=== PATIENT | male | born 1970 | race Caucasian/White ===

== ENCOUNTER 2022-05-09 14:45 | Outpatient (CLI) | payer OTHER, SELFPAY ==
[2022-05-09 16:27] LABS: Thyroid Stim Hormone (TSH) 1.13 uIU/mL (0.358-3.74)
== END 2022-05-09 23:59 | disposition home or self-care (01) ==
LOC: LAB 14:47
PROVIDERS: PCP Preventive Medicine Occupational Medicine; Visit Provider Internal Medicine Cardiovascular Disease
DX: E78.2 Mixed hyperlipidemia (principal); I10 Essential (primary) hypertension; G47.33 Obstructive sleep apnea (adult) (pediatric)
CPT/HCPCS: 36415; 84443

== ENCOUNTER → 2022-05-27 | Outpatient (CLI) | payer OTHER, SELFPAY ==
--- NOTE | 2022-05-27 07:46 | RDU_ITS ---
Reason For Study: Hypertension Right Renal Artery Left Renal Artery Right renal artery ostium Left renal artery ostium 122.6/39.3 137.4/49.6 RSV/EDV. PSV/EDV. Right renal artery proximal Left renal artery proximal PSV/EDV 159.3/51.8 PSV/EDV. 133.6/41.5 . Right renal artery mid 120.4/36.6 Left renal artery mid 133.6/39.3 PSV/EDV. PSV/EDV . Right renal artery distal 98.7/35.1 Left renal artery distal 61.9/20.2 PSV/EDV. PSV/EDV. Right RAR 2.21. Left RAR 1.86. Right Renal Parenchyma Left Renal Parenchyma Upper Pole Medula 48.2/19.2 Left upper pole medulla 31.7/14.1 PSV/EDV. PSV/EDV . Right upper pole medulla EDR 0.40 . Left upper pole medulla EDR 0.40 . Right upper pole medulla R.I. Left upper pole medulla R.I. 0.55 . 0.59 . UP Cortex 28.9/13.2 PSV/EDV. Upper [place] Cortx 27.6/11.6 PSV/EDV. Left upper pole cortex EDR 0.50 . Right upper pole cortex EDR 0.40 . Left upper pole cortex R.I. 0.54 . Right upper pole cortex R.I. 0.58 . Left lower Pole medulla 38.3/14.1 Right lower Pole medulla 41.6/16.4 PSV/EDV . PSV/EDV . Left lower pole medulla EDR 0.40 . Right lower pole medulla EDR 0.40 . Left lower pole medulla R.I. 0.63 . Right lower pole medulla R.I. Lower Pole Cortx 26.2/13.1 PSV/EDV. 0.61 . Left lower pole cortex EDR 0.50 . Lower Pole Cortex 22.9/10.9 Left lower pole cortex R.I. 0.50 . PSV/EDV. Left Renal Hilar Right lower pole cortex EDR 0.50 . LT Hilar avg 101.8/38.3 PSV/EDV . Right lower pole cortex R.I. 0.53 . Left hilar acceleration time 60 Right Renal Hilar m/sec. Right Hilar avg 109.7/31.2 PSV/EDV. Left Renal Dimensions Right hilar acceleration time 50 Left kidney size 11.99 cm . m/sec. Left cortical dimension 1.73 cm . Right Renal Dimensions Right kidney size 12.90 cm . Right cortical dimension 1.80 cm . Aorta Proximal abdominal aorta 1.85 x 1.90 cm . Proximal abdominal aorta peak systolic velocity is 61.0 cm/sec . Distal abdominal aorta 1.41 x 1.43 cm . Distal abdominal aorta peak systolic velocity is 72.0 cm/sec . VL/Renal Artery Duplex Ultrasound Interpretation Summary Right renal artery patent with normal velocities and no stenosis Left renal artery patent with normal velocities and no stenosis Right renal vein patent Left renal vein patent Right kidney normal in size Left kidney normal in size Ordering Physician: Nikhil Woody Referring Physician: MD Sawyer Fitch Performed By: Gabriel Agarwal RVT
== END | disposition home or self-care (01) ==
PROVIDERS: PCP Preventive Medicine Occupational Medicine; Visit Provider Internal Medicine Cardiovascular Disease
DX: I10 Essential (primary) hypertension (principal); E78.2 Mixed hyperlipidemia; G47.33 Obstructive sleep apnea (adult) (pediatric)
CPT/HCPCS: 93975

== ENCOUNTER → 2022-05-29 | Outpatient (CLI) | payer OTHER, SELFPAY | END | disposition home or self-care (01) | PROVIDERS: PCP Preventive Medicine Occupational Medicine; Visit Provider Nurse Practitioner Acute Care | DX: G47.33 Obstructive sleep apnea (adult) (pediatric) (principal) | CPT/HCPCS: 95806 ==

== ENCOUNTER → 2023-05-15 | Outpatient (CLI) | payer OTHER, SELFPAY | END | disposition home or self-care (01) | LOC: LABSPEC 15:14 | PROVIDERS: PCP Preventive Medicine Occupational Medicine; Referring Provider Otolaryngology; Visit Provider Otolaryngology | DX: J32.8 Other chronic sinusitis (principal) | CPT/HCPCS: 87070; 87077; 87186; 87205 ==

== ENCOUNTER → 2023-05-26 | Outpatient (CLI) | payer OTHER, SELFPAY ==
--- NOTE | 2023-05-26 08:04 | CT_ITS ---
STUDY: CT MAXILLOFACIAL SINUSES REASON FOR EXAM: Male, 52 years old. CHRONIC SINUSITIS RADIATION DOSAGE (If Supplied By Facility): CTDIvol = ( 28.14 ) mGy, DLP = ( 735.64 ) mGycm TECHNIQUE: The patient was scanned in a multi detector CT scanner. High resolution axial imaging was performed without the administration of intravenous contrast material. Sagittal and coronal images were reconstructed. Individualized dose optimization techniques were used for this CT. COMPARISON: None. FINDINGS: FRONTAL SINUSES: Normal aeration, without mucosal inflammatory disease. ETHMOIDAL SINUSES: Partial opacification of the ethmoid sinuses bilaterally. MAXILLARY SINUSES: There is opacification of the left maxillary sinus. There is extension of the soft tissues through the ostiomeatal complex into the left nasal fossa. SPHENOIDAL SINUSES: Normal aeration, without mucosal inflammatory disease. Normal bilateral middle turbinates. Normal bilateral inferior turbinates. Normal midline nasal septum. Partial obliteration of the left nasal airway due to soft tissue prominence arising from the left maxillary sinus. The visualized osseous structures are normal. The visualized bilateral orbital contents are normal. CT/Sinus/Facial Bone IMPRESSION: Opacification of the left maxillary sinus with extension into the adjacent left nasal fossa. Partial opacification of the ethmoid sinuses bilaterally. Electronically Signed: Hemant Patel MD at 11:03 EST ,
== END | disposition home or self-care (01) ==
PROVIDERS: PCP Preventive Medicine Occupational Medicine; Referring Provider Otolaryngology; Visit Provider Otolaryngology
DX: J32.8 Other chronic sinusitis (principal); J33.0 Polyp of nasal cavity
CPT/HCPCS: 70486

== ENCOUNTER → 2023-06-18 | Outpatient (CLI) | payer OTHER, SELFPAY ==
--- NOTE | 2023-06-18 13:44 | EKG12_ITS ---
Test Reason : PREOP Blood Pressure : / mmHG Vent. Rate : 056 BPM Atrial Rate : 056 BPM P-R Int : 168 ms QRS Dur : 100 ms QT Int : 448 ms P-R-T Axes : 009 -13 -10 degrees QTc Int : 432 ms Sinus bradycardia Otherwise normal ECG Confirmed by BINU STEWART, PATRIC ([id number]), school photograph editor JOSE HALLMAN ([id number]) on 06/19/2023 11:37:18 AM Referred By: Stan Durham Confirmed By:PATRIC SCHMID MD
--- OUTSIDE RECORDS SUMMARY | 2023-06-18 14:08 | XMS RPT_ITS | CCD ---
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 Name Role Phone ALBA CRISTOBAL DO Primary Care Physician ([id number]) Medications Current Medications Medication Drug Class(es) Dates Sig (Normalized) Sig (Original) allopurinol 100 mg oral tablet (1 source) Xanthine Oxidase Inhibitor Start: 09-12-2021 allopurinol 100 mg oral tablet Dose : 100 mg = 1 tab(s), Oral, qDay, # 30 tab(s), 3 Refill(s), Pharmacy: [facility] [facility] 167.6, cm, 09/11/21 15:30:00 EDT, Height Start Date: 09/12/21 Status: Ordered carvedilol 25 mg oral tablet (1 source) alpha-Adrenergic Janna, beta-Adrenergic Janna Start: 09-11-2021 carvedilol 25 mg oral tablet Dose : 37.5 mg = 1.5 tab(s), Oral, BIDM, # 90 tab(s), 11 Refill(s), Pharmacy: [facility] 167.6, cm, 09/11/21 15:30:00 EDT, Height, kg, 09/11/21 15:30:00 EDT, Dosing Weight Start Date: 09/11/21 Status: Ordered 24 hr dilTIAZem hydrochloride 240 mg extended release oral tablet (1 source) Calcium Channel Janna Start: 06-25-2021 take 1 tablet by mouth once daily dilTIAZem 240 mg/24 hours oral tablet, extended release See Instructions, take 1 tablet by mouth once daily, # 90 tab(s), 3 Refill(s), [facility]acy: [facility] [address] 167.6, cm, 02/01/21 18:02:00 EDT, Height, kg, 02/01/21 18:02:00 EDT, Dosing Weight Start Date: 06/25/21 Status: Ordered hydroCHLOROthiazide 12.5 mg / valsartan 160 mg oral tablet (1 source) Thiazide Diuretic, Angiotensin 2 Receptor Janna Start: 07-20-2021 take 1 tablet by mouth twice daily hydrochlorothiaz maribeth-valsartan 12.5 mg-160 mg oral tablet See Instructions, take 1 tablet by mouth twice a day, # 60 tab(s), 5 Refill(s), Pharmacy: [facility] [address] 167.6, cm, 02/01/21 18:02:00 EDT, Height, kg, 02/01/21 18:02:00 EDT, Dosing Weight Start Date: 07/20/21 Status: Ordered Problems Problem Classification Problem Date Documented Da te Episodic/Chronic Disorders of lipid metabolism (1 source) Mixed hyperlipidemia 08-13-2019 Chronic Essential hypertension (2 sources) Essential hypertension; Translations: [Hypertensive disorder] 08-17-2019 Chronic Heart valve disorders (1 source) Heart murmur 08-17-2019 Episodic Malaise and fatigue (1 source) Fatigue 08-17-2019 Episodic Nonspecific chest pain (1 source) Chest pain 08-13-2019 Episodic Residual codes; unclassified (1 source) Obstructive sleep apnea syndrome 08-17-2019 Chronic Results Test Name Value Interpretation Reference Range Facil ity Encounters Encounter Date Encounter Type Care Provider Facility Start: 09-12-2021 End: 09-12-2021 Patient encounter procedure JUNA A CORONEL [facility] Procedures Date Procedure Procedure Detail Performing Clinician Start: 02-23-2019 Electrocardiographic monitoring JUAN A CORONEL Immunizations Immunization Date Immunization Notes Care Provider Safia robles 02-01-2021 tetanus toxoid, redu mau diphtheria toxoid, and acellular pertussis vaccine, adsorbed JUAN A KAREN MCGUIRE-GENERATOR SWITCHBOARD OPERATOR [facility] 12-22-2018 tetanus toxoid, redu mau diphtheria toxoid, and acellular pertussis vaccine, adsorbed JUAN A FISH THEATER SET PRODUCTION DESIGNER-GENERATOR SWITCHBOARD OPERATOR [facility] Social History Date Type Detail Facility Start: 12-22-2018 Tobacco smoking status Never s moked tobacco (finding) [facility] Sex Assigned At Sex [facility] Evaluation + Plan note Note Date & Type Note Facility Evaluation + Plan note Future Appointments Appointment Date:09/25/2021 03:30:00 PM Scheduled Provider: Location:[facility] Appointment Type:CV Nurse BP Check [facility] Hospital course Narrative Note Date & Type Note Facility Hospital course Narrative No data available for this section [facility] Hospital Discharge instructions Note Date & Type Note Facility Hospital Discharge instructions No data available for this section [facility] Progress note Note Date & Type Note Facility Progress note No data available for this section [facility] Summary Purpose Family History No Family History Records Found Advance Directives No Advanced Directives Records Found Additional Source Comments Care Team (unrecognized sect ion and content) Personnel Name: ALBA CRISTOBAL DO Address: [address] [place] [address] (unrecognized sect ion and content) No Status Records Found INFORMATION SOURCE (unrecogn ized section and content) FOR RECORDS PERTAINING TO PATIENTS WHO ARE OR HAVE BEEN ENROLLED IN A CHEMICAL DEPENDENCY/SUBSTANCEABUSE PROGRAM, SOME INFORMATION MAY BE OMITTED. This clinical summary was aggregated from multiple sources. Caution should be exercised in using it in the provision of clinical care. This summary normalizes information from multiple sources, and as a consequence, information in this document may materially change the coding, format and clinical context of patient data. In addition, data may be omitted in some cases. CLINICAL DECISIONS SHOULD BE BASED ON THE PRIMARY CLINICAL RECORDS. [facility]. provides no warranty or guarantee of the accuracy or completeness of information in this document.
[2023-06-18 15:33] LABS: Hematocrit 42.7 % (40-54); Hemoglobin 15.4 g/dL (13.0-16.5); Mean Corp Hgb Conc 36.1 g/dL (32-36); Mean Corpuscular Hgb 31.8 pg (27.0-32.0); Mean Corpuscular Volume 88.2 fL (80-94); Platelet Count 287 K/mm3 (150-450); RBC Distribution Width CV 13.4 % (11.6-14.6); RBC Distribution Width SD 43.1 fl (35.1-43.9); Red Blood Count 4.84 M/mm3 (4.6-6.2); White Blood Count 10.8 K/mm3 (4.4-11.0)
[2023-06-18 16:30] LABS: Anion Gap 7 (5-15); BUN 18 mg/dL (7-18); BUN/Creat Ratio 19.8 RATIO (10-20); Chloride 102 mmol/L (98-107); Creatinine, Serum 0.91 mg/dL (0.70-1.30); EST Glomerular Filtration Rate 92 mL/min (>60); Est Glom Filt Rate - Afr Amer 112 mL/min (>60); Glucose 96 mg/dL (74-106); Potassium 3.2 mmol/L (3.5-5.1); Sodium Level 139 mmol/L (136-145)
[2023-06-19 17:44] LABS: Cholesterol 179 mg/dL (200); High Density Lipoprotein 70 mg/dL; PSA,Total - Annual Screen 4.53 ng/mL (0.00-4.00); Triglycerides 213 mg/dL; Very Low Density Lipoprotein 43 mg/dL (5-40)
== END | disposition home or self-care (01) ==
PROVIDERS: Nurse Practitioner Family; PCP Preventive Medicine Occupational Medicine; Referring Provider Otolaryngology; Visit Provider Otolaryngology
DX: Z01.812 Encounter for preprocedural laboratory examination (principal); Z01.810 Encounter for preprocedural cardiovascular examination; Z12.5 Encounter for screening for malignant neoplasm of prostate; Z13.220 Encounter for screening for lipoid disorders
CPT/HCPCS: 36415; 80048; 80061; 84153; 85027; 93005; G0103

== ENCOUNTER → 2024-08-31 | Outpatient (CLI) | payer OTHER, SELFPAY ==
[2024-09-01 13:08] LABS: PSA, Free 0.51 ng/mL
== END | disposition home or self-care (01) ==
LOC: LAB 11:03
PROVIDERS: PCP Preventive Medicine Occupational Medicine; Referring Provider Urology; Visit Provider Urology
DX: R97.20 Elevated prostate specific antigen [PSA] (principal)
CPT/HCPCS: 36415; 84153; 84154

== ENCOUNTER → 2024-09-21 | Outpatient (CLI) | payer OTHER, SELFPAY ==
--- NOTE | 2024-09-21 12:28 | MRI_ITS ---
PROCEDURE: PELVIS W/WO CONTRAST, 09/21/2024 REASON FOR EXAM: ELEVATED PSA TECHNIQUE: Multisequence multiplanar MRI pelvis was performed with and without IV contrast. CONTRAST: 20 mL Clariscan COMPARISON: None FINDINGS: Variable overall mild motion limitation, mild/moderately degrading the axial and sagittal small [id number] T2 sequences which are notably gonzalez sequences. Sagittal postcontrast sequences also mild/moderately motion degraded. Dynamic postcontrast imaging limited by suboptimal signal to noise ratio. Prostate size: 5.4 x 4.1 x 4.9 cm, estimated volume 56 mL. Transition zone: PI-RADS 2 findings. Additional lesions as below: *Lesion 1: Junction of the LEFT anterior peripheral zone and the underlying LEFT anterior transition zone at the level of the midgland to apex, 1.3 cm (series 13, image 22). *T2 score: 3. *DWI score: 4. *DCE: N/A. *Overall PI-RADS: PI-RADS 3 utilizing transition zone criteria. *Extracapsular extension:No definite extracapsular extension allowing for limitations, however, there is capsular abutment greater than 1 cm which increases the risk of occult early/microscopic extracapsular extension. Peripheral Zone: Background changes of likely prostatitis (PI-RADS 2). Additional lesions as below: *Lesion 2: Bilateral posteromedial peripheral zones at the midgland to apex, 3.2 cm (series 13, image 23). *T2 score: 3. *DWI score: 3. *DCE: N/A. *Overall PI-RADS: Negative although limited due to suboptimal signal to noise ratio as above. *Extracapsular extension:No definite extracapsular extension allowing for limitations, however, there is capsular abutment greater than 1 cm which increases the risk of occult early/microscopic extracapsular extension. Note that this includes the region of the bilateral neurovascular bundles and anterior rectum, without gross involvement. Neurovascular bundles: Unremarkable. Seminal vesicles: Unremarkable. Bladder: Unremarkable. Lymph nodes: Unremarkable. Bones: No destructive or frankly suspicious bony lesions identified. Other: Partially imaged at least small LEFT and trace RIGHT hydroceles. Suspect vasectomy. MRI/Pelvis W/WO Contrast IMPRESSION: 1. Slightly motion limited exam as above. 2. 1.3 cm PI-RADS 3 lesion at the junction of the LEFT anterior peripheral and underlying transition zones at the level of the midgland to apex, applying transition zone criteria (lesion 1). 3. 3.2 cm PI-RADS 3 lesion in the bilateral posteromedial peripheral zones at t he midgland to apex (lesion 2). 4. No definite extracapsular extension allowing for limitations, however, there is capsular abutment greater than 1 cm by both lesions which increases the risk of occult early/microscopic extracapsular exte nsion. Note that this includes the region of the bilateral neurovascular bundles and anterior rectum, without gross involvement. 5. No overt pelvic lymphadenopathy. 6. Additional description as above. Reading Location: [facility]
== END | disposition home or self-care (01) ==
LOC: MRI 12:25
PROVIDERS: PCP Preventive Medicine Occupational Medicine; Referring Provider Urology; Visit Provider Urology
DX: R97.20 Elevated prostate specific antigen [PSA] (principal)
CPT/HCPCS: 72197; A9575

== ENCOUNTER → 2024-10-12 | Outpatient (CLI) | payer OTHER, SELFPAY ==
--- NOTE | 2024-10-12 13:00 | PROSBIL_PTH ---
PATIENT: PONCHO KEYES [facility] U[id number] AGE/SX: 54/M ROOM: RE10/12/[address]: Dr. Lalo Álvarez MD : [id number] BED: DIS: 10/12/2024 SPEC #: [id number] RECD: 10/12/24 15:33 STATUS: CARTER RERadha #: [id number] ABNER: 10/12/24 13:[address]: Lalo Álvarez DEPT: SURGICAL PATHOLOGY RECD BY: Omar Deluca ENTERED: 10/13/24 08:58 SP TYPE: PROST BX ART DR: Dr. Sawyer Fitch DO Tissues: A - PROSTATE RIGHT B - PROSTATE RIGHT C - PROSTATE RIGHT D - PROSTATE LEFT E - PROSTATE LEFT F - PROSTATE LEFT Procedures: PROSTATE BX HEADER OPERATION: Prostate biopsy PRE-OP DIAGNOSIS: Elevated PSA TISSUE SUBMITTED: A - Right apex, B - Right mid, C - Right base, D - Left apex, E - Left mid, F - Left base MICROSCOPIC DIAGNOSIS A. Prostate, right apex, biopsy: * Benign prostatic tissue B. Prostate, right mid, biopsy: * Benign prostatic tissue C. Prostate, right base, biopsy: * Benign prostatic tissue D. Prostate, left apex, biopsy: * Benign prostatic tissue E. Prostate, left mid, biopsy: * Benign prostatic tissue F. Prostate, left base, biopsy: * Benign prostatic tissue MICROSCOPIC DESCRIPTION Slides are reviewed. GROSS DESCRIPTION A. Received in formalin in a container labeled with the patient's name, date of , and RA are 2 white and wispy core biopsies of soft tissue each measuring 0.7 x 0.1 cm. Submitted in toto in A1. B. Received in formalin in a container labeled with the patient's name, date of , and RM is a 1.0 x 0.1 cm white and wispy core biopsy of soft tissue. Submitted in toto in B1. C. Received in formalin in a container labeled with the patient's name, date of , and RB is a 0.7 x 0.1 cm white and wispy core biopsy of soft tissue. Submitted in toto in C1. D. Received in formalin in a container labeled with the patient's name, date of , and LA are 3 white and wispy core biopsies of soft tissue ranging from 0.9 x 0.1 cm to 1.5 x 0.1 cm. Submitted in toto in D1. E. Received in formalin in a container labeled with the patient's name, date of , and LM is a 0.9 x 0.1 cm white and wispy core biopsy of soft tissue. Submitted in toto in E1. F. Received in formalin in a container labeled with the patient's name, date of , and LB is a 1.3 x 0.1 cm white and wispy core biopsy of soft tissue. Submitted in toto in F1. [facility] 10-13-2024 CPT:35982p2
== END | disposition home or self-care (01) ==
LOC: LABSPEC 15:35
PROVIDERS: PCP Preventive Medicine Occupational Medicine; Referring Provider Urology; Visit Provider Urology
DX: R97.20 Elevated prostate specific antigen [PSA] (principal)
CPT/HCPCS: 88305; G0416

== ENCOUNTER → 2025-04-21 | Outpatient (CLI) | payer OTHER, SELFPAY ==
--- OUTSIDE RECORDS SUMMARY | 2025-04-21 06:17 | XMS RPT_ITS | CCD ---
Author Organization [facility] Care Team Providers Care Court Abstractor Name Role Phone ALBA FITCH DO Primary Care Physician [phone] Татьяна Mason Attending Provider Unavailable Dr. Nikhil Woody Attending Provider Dr. Alba Fitch Referring Provider [phone] Carline ABORIGINAL CEREMONIAL CELEBRANT, ABORIGINAL CEREMONIAL CELEBRANT-C Adia Attending Provider [phone] Dr. Alba Fitch Primary Care Provider Dr. Francisco Navarro Attending Provider [phone] Alba Fitch Primary Care Provider Dr. Joshua Bunch Attending Provider [phone] Yaima Tobar Referring Provider [phone] ALBA FITCH DO Primary Care Unavailable WENDY CORONEL, MANUEL Attending ALBA Collins DO Primary Care Unavailable MANUEL GAONA Attending Dr. Alba Collins DO Primary Care Provider [phone] Henri STEWART, Dr. Lalo Meraz Attending Provider [phone] Dr. Lalo Álvarez MD Referring Provider [phone] Ayo Whaley MD Unavailable NONE, NONE Unavailable Unavailable Wendy ZHAO, Manuel K Unavailable [phone] Lalo Álvarez Referring Unavailable Lalo Álvarez Attending Unavailable Alba Fitch Primary Care Unavailable Lalo Álvarez Referring Unavailable Lalo Álvarez Attending Unavailable Alba Fitch Primary Care Unavailable Lalo Álvarez Referring Unavailable Lalo Álvarez Attending Unavailable Alba Fitch Primary Care Unavailable Timmy Larson Attending Unavailable Alba Fitch Referring Unavailable Alba Fitch Primary Care Unavailable Medications Current Medications Medication Drug Class(es) Dates Sig (Normalized) Sig (Original) amLODIPine 10 mg oral tablet (20 sources) Dihydropyridine Calcium Channel Janna Start: 06-23-2023 End: 06-14-2024 take 1 tablet by mouth once daily Amlodipine 10 mg tablet Active 10 mg PO DAILY 90 June 14, 2024 3:50pm Start: 06-19-2023 amLODIPine 5 m g oral tablet Dose : 5 mg = 1 tab(s), Oral, qDay, # 30 tab(s), 0 Refill(s) Start Date: 06/19/23 Status: Ordered Start: 06-25-2022 End: 06-23-2023 take 2 tablets by mouth once daily Amlodipine 5 mg tablet Discontinued 10 mg PO DAILY 180 June 25, 2022 4:20pm June 23, 2023 10:03am Start: 06-25-2022 End: 06-23-2023 take 10 mg by mouth once daily Amlodipine Discontinued 10 MG PO DAILY 180 June 25, 2022 3:20pm June 23, 2023 9:03am Start: 05-09-2022 End: 06-25-2022 take 1 tablet by mouth once daily Amlodipine 5 mg tablet Discontinued 5 mg PO DAILY May 09, 2022 1:00am June 25, 2022 4:22pm baclofen 5 mg oral tablet (1 source) gamma-Aminobutyric Acid-ergic Agonist Start: 03-31-2024 baclofen 5 mg tablet Take 1 tablet by mouth three times a day as directed as needed for muscle spasms active Татьяна Hernandez PA-C, [address] [facility] [address] [place] [id number] Primary osteoarthritis left shoulder [facility] naproxen sodium 220 mg oral tablet (1 source) Nonsteroidal Anti-inflammatory Drug Start: 11-19-2016 Aleve 220 mg tabl et tablet by mouth as needed for pain active Imani Enriquez MA [facility] Completed/Discontinued Medications Medication Drug Class(es) Dates Sig (Normalized) Sig (Original) allopurinol 100 mg oral tablet (10 sources) Xanthine Oxidase Inhibitor Start: 04-29-2022 End: 01-05-2024 take 1 tablet by mouth once daily Allopurinol 100 mg tablet Discontinued 100 mg PO DAILY April 29, 2022 1:00am January 05, 2024 3:02pm Start: 09-12-2021 allopurinol 10 0 mg oral tablet Dose : 100 mg = 1 tab(s), Oral, qDay, # 30 tab(s), 3 Refill(s), Pharmacy: [facility], 167.6, cm, 09/11/21 15:30:00 EDT, Height Start Date: 09/12/21 Status: Ordered amoxicillin 875 mg / clavulanate 125 mg oral tablet (8 sources) Penicillin-class Antibacterial Start: 05-20-2022 End: 07-02-2022 Amoxicillin-Pot Clavulanate 875-125 mg tablet Discontinued 1 {tbl} PO TWICE A DAY May 20, 2022 1:00am July 02, 2022 9:41am Start: 05-20-2022 End: 07-02-2022 take 1 tablet by mouth twice daily Amoxicillin-Pot Clavulanate Discontinued 1 TABLET PO TWICE A DAY May 20, 2022 12:00am July 02, 2022 8:41am carvedilol 25 mg oral tablet (20 sources) alpha-Adrenergic Janna, beta-Adrenergic Janna Start: 04-29-2022 End: 12-26-2022 Carvedilol 25 mg tablet Discontinued 37.5 mg PO TWICE A DAY 270 November 14, 2022 3:36pm December 26, 2022 3:22pm must administer with a meal/food Start: 04-29-2022 End: 12-26-2022 take 37.5 mg by mouth twice daily at mealtime Carvedilol Discontinued 37.5 MG PO TWICE A DAY 270 November 14, 2022 2:36pm December 26, 2022 2:22pm must administer with a meal/food Start: 09-11-2021 End: 01-26-2024 take 1 tablet by mouth twice daily at mealtime Carvedilol 25 mg tablet Discontinued 25 mg PO TWICE A DAY 180 December 26, 2022 3:22pm January 26, 2024 4:43pm must administer with a meal/food 24 hr dilTIAZem hydrochloride 240 mg extended release oral capsule (10 sources) Calcium Channel Janna Start: 04-29-2022 End: 12-26-2022 take 1 capsule by mouth once daily Diltiazem Hcl 240 mg capsule,extended release 24hr Discontinued 240 mg PO DAILY April 29, 2022 1:00am December 26, 2022 3:23pm On Hold: Order Changed Start: 06-25-2021 take 1 tablet by ronny th once daily dilTIAZem 240 mg/24 hours oral tablet, extended release See Instructions, take 1 tablet by mouth once daily, # 90 tab(s), 3 Refill(s), Pharmacy: [facility] [facility], 167.6, cm, 02/01/21 18:02:00 EDT, Height, kg, 02/01/21 18:02:00 EDT, Dosing Weight Start Date: 06/25/21 Status: Ordered hydroCHLOROthiazide 12.5 mg / valsartan 160 mg oral tablet (20 sources) Thiazide Diuretic, Angiotensin 2 Receptor Janna Start: 05-09-2022 End: 06-04-2023 take 1 tablet by mouth twice daily Valsartan-Hydrochlorothiazide Active 1 TABLET PO TWICE A DAY 180 June 04, 2023 3:01pm Start: 04-29-2022 End: 05-09-2022 Valsartan-Hydrochlorothiazid e 160-12.5 mg tablet Discontinued 1 {tbl} PO DAILY April 29, 2022 1:00am May 09, 2022 2:49pm Start: 04-29-2022 End: 05-09-2022 take 1 tablet by mouth once daily Valsartan-Hydrochlorothiazide Discontinu ed 1 TABLET PO DAILY April 29, 2022 12:00am May 09, 2022 1:49pm Start: 04-01-2022 End: 04-19-2024 Valsartan-Hydrochlorothiazid e 160-12.5 mg tablet Discontinued 1 {tbl} PO TWICE A DAY 180 June 04, 2023 4:01pm April 19, 2024 9:59am Start: 07-20-2021 take 1 tablet by ronny th twice daily hydrochlorothiazide-valsartan 12.5 mg-16 0 mg oral tablet See Instructions, take 1 tablet by mouth twice a day, # 60 tab(s), 5 Refill(s), Pharmacy: [facility] [facility], 167.6, cm, 02/01/21 18:02:00 EDT, Height, kg, 02/01/21 18:02:00 EDT, Dosing Weight Start Date: 07/20/21 Status: Ordered valsartan 160 mg -hydrochlorothiazide 12.5 mg tablet active Imani Enriquez MA [facility] Semaglutide (3 sources) Start: 01-05-2024 End: 01-09-2024 Semaglutide (Ozempic) 0.25 m g or 0.5 mg (2 mg/3 mL) pen injector Discontinued 0.25 mg SC EVERY WEEK 3 January 05, 2024 12:00am January 09, 2024 4:31pm for 4 weeks Problems Active Problems Problem Classification Problem Date Documented Da te Episodic/Chronic Disorders of lipid metabolism (16 sources) Mixed hyperlipidemia; Translations: [Mixed hyperlipidemia] 08-13-2019 Chronic Essential hypertension (20 sources) Essential hypertension; Translations: [Hypertensive disorder] Onset: 06-19-2023 08-17-2019 Chronic Heart valve disorders (4 sources) Heart murmur 08-17-2019 Episodic Malaise and fatigue (4 sources) Fatigue 08-17-2019 Episodic Nonspecific chest pain (4 sources) Chest pain 08-13-2019 Episodic Osteoarthritis (1 source) Primary osteoarthritis, left shoulder; Translations: [Osteoarthrosis, localized, primary, shoulder region] Onset: 08-26-2023 08-26-2023 Chronic Other nutritional; endocrine; and metabolic disorders (3 sources) Obesity; Translations: [Obesity, unspecified] 01-05-2024 Chronic Residual codes; unclassified (13 sources) Obstructive sleep apnea syndrome; Translations: [Obstructive sleep apnea (adult) (pediatric)] 08-17-2019 Chronic Comment on above: AHI noted to be 12.7 Residual codes; unclassified (5 sources) Obstructive sleep apnea (adult) (pediatric); Translations: [Obstructive sleep apnea (adult)(pediatric)] Chronic Past or Other Problems Problem Classification Problem Date Documented Date Episodic/Chronic Other connective tissue disease (1 source) Biceps tendinitis; Translations: [Bicipital tendinitis, right shoulder] Onset: 11-19-2016 11-19-2016 Episodic Other connective tissue disease (1 source) Shoulder tendinitis; Translations: [Other shoulder lesions, right shoulder] Onset: 11-19-2016 11-19-2016 Episodic Other screening for suspected conditions (not mental disorders or infectious disease) (1 source) Elevated prostate specific antigen [PSA]; Translations: [Elevated prostate specific antigen [PSA]] Onset: 10-18-2024 Episodic Residual codes; unclassified (9 sources) History of cardiac catheterization; Translations: [Other specified postprocedural states] Onset: 11-08-2011 05-14-2022 Episodic Comment on above: Normal Coronaries @ [facility] 12/06/11 Residual codes; unclassified (1 source) History of operative procedure on shoulder; Translations: [Other specified postprocedural states] Onset: 11-19-2016 11-19-2016 Episodic Results Test Name Value Interpretation Reference Range Facility Cardiology Visit Reporton Cardiology Visit Report [facility] [address] [facility] [place] [address] OFFICE VISIT Date of Service: 04/01/25 MR#: [id number] Acct: [id number] Name: PONCHO KEYES Rep #: [id number] : 1970 Provider: Dr. Timmy castro MD Age/Sex: 54/M Location[facility] Status: Signed HPI HPI History of Present Illness Details: Patient is a pleasant 54-year-old white male who comes in today for monitor of his cardiovascular status. Patient carries a history of hypertension hyperlipidemia and obesity. The patient really does not follow-up with his primary care physician. He uses an online called doc for acute issues. Patient denies any anginal type symptoms he is fairly active in his home environment he is contemplating left shoulder surgery in June 2025. This will be done through the [facility]. The patient does not have any known coronary disease his last echocardiogram in December 2019 showed an EF of 60-65% there was mild MR right ventricular systolic pressure was normal at 20 mmHg and there was mild TR. He had a remote catheterization done in 2011 which showed minimal if any atherosclerotic disease The patient's lipids last checked June 2023 showed a total cholesterol 179, HDL 70, LDL 66, and triglycerides 213. Given the patient's overall general situation and an HDL of 70 this represents adequate control in my opinion. The patient did not trial Ozempic back in December 2023 as we had discussed. His weight is 223 pounds he is BMI equal 35. 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: No Accompanied by: Self Is patient in pain?: No Allergies No Known Allergies Allergy (Unverified 04/01/25 13:16) Medications ???Medication ???Instructions ???Recorded ???Confirmed ???Type amlodipine 10 mg tablet 10 mg PO DAILY 90 days #90 tabs 04/01/25 Rx valsartan 160 1 tab PO BID #180 tabs 12/13/24 Rx mg-hydrochlorothiazide 12.5 mg tablet carvedilol 25 mg tablet 25 mg PO BID #180 tabs 01/18/25 Rx AG1 ([facility]) PO QDAY 04/01/25 History cholecalciferol (vitamin D3) 10 10 mcg PO QDAY 04/01/25 04/01/25 H istory mcg (400 unit) capsule multivitamin 1 tab PO QDAY 04/01/25 04/01/25 Hi story Ejection fraction %: 60 PFSH Medical History ROSALES (obstructive sleep apnea) Mixed hyperlipidemia Essential hypertension Surgical History History of left heart catheterization (LHC) ( 12/06/11) Family History Father CAD (coronary artery disease) Hypertension Cardiac pacemaker in situ Mother Hypertension Sister Hypertension Social History Smoking Status: Never smoker Smokeless tobacco user: other alcohol intake: current details: 1-2 times per week substance use type: does not use caffeine: Yes Type: coffee Number of servings: 2 ROS Const Const: Negative for fatigue, weakness, headache(s), frequent falls, daytime sleepiness or weight gain Eyes Eyes: Negative for blurry vision ENT ENT: Negative for headache(s), dizziness, tinnitus, Nosebleed/epistaxis, balance problems or neck pain Cardio Chest Pain: No Palpitations: No Edema: None Muscle aches with walking: None Resp Respiratory: Negative for SOB with activity, SOB at rest, SOB orthopnea SOB lying down or paroxysmal nocturnal dyspnea GI GI: Negative nausea, vomiting, heartburn, vomiting blood/hematemesis, bright, red blood in stools or black,tarry stools : Negative for hematuria or frequent nighttime urination/ nocturia Musc Musc: Negative for balance problems Skin Skin: Negative non-healing lesions, rash or wounds Neuro Neuro: Negative for dizziness, lightheadedness, near syncope, syncope, orthostatic symptoms, frequent falls, headache(s), weakness or blurry vision Michael Hematologic/Lymphatic: Negative for easy bleeding or easy bruising Endo Endo: Negative for fatigue Allergy Allergy/Immunology: Negative for rash Cardiology Exam Const Appearance: cooperative, healthy appearing, comfortable and no acute distress Nutritional Appearance: overweight Head Head: normal to inspection Eyes General: appearance normal, both eyes and all related structures Neck Neck: normal visual inspection and no JVD Carotids: Negative bruit Chest Chest inspection: spencer (more content not included)... Normal [facility] Relevant diagnostic tests/la boratory data Narrativeon 03-15-2025 Fall risk assessment no [employer] Work Phone: MEDS REVIEW Documentation of cur rent medications (procedure) [employer] Work Phone: MEDS REVIEWD Medications reviewed with changes [employer] Work Phone: Surgical pathology reportOrd ered By: Teresita Lemus on 10-14-2024 Surgical pathology study [facility] PROSTATE BXon 10-12-2024 PROSTATE BX ---- Patient Age/Sex Location Account Attending Physician PONCHO KEYES 54/M LABSPEC [id number] Dr. Lalo Álvarez MD Specimen: [id number] Received: 10/12/24 Status: CARTER Julian Num: [id number] Spec Type: PROST BX Subm Dr: Dr. Lalo Álvarez MD HEADER OPERATION: Prostate biopsy PRE-OP DIAGNOSIS: Elevated PSA TISSUE SUBMITTED: A - Right apex, B - Right mid, C - Right base, D - Left apex, E - Left mid, F - Left base MICROSCOPIC DIAGNOSIS A. Prostate, right apex, biopsy: * Benign prostatic tissue B. Prostate, right mid, biopsy: * Benign prostatic tissue C. Prostate, right base, biopsy: * Benign prostatic tissue D. Prostate, left apex, biopsy: * Benign prostatic tissue E. Prostate, left mid, biopsy: * Benign prostatic tissue F. Prostate, left base, biopsy: * Benign prostatic tissue MICROSCOPIC DESCRIPTION Slides are reviewed. GROSS DESCRIPTION A. Received in formalin in a container labeled with the patient's name, date of , and RA are 2 white and wispy core biopsies of soft tissue each measuring 0.7 x 0.1 cm. Submitted in toto in A1. B. Received in formalin in a container labeled with the patient's name, date of , and RM is a 1.0 x 0.1 cm white and wispy core biopsy of soft tissue. Submitted in toto in B1. C. Received in formalin in a container labeled with the patient's name, date of , and RB is a 0.7 x 0.1 cm white and wispy core biopsy of soft tissue. Submitted in toto in C1. D. Received in formalin in a container labeled with the patient's name, date of , and LA are 3 white and wispy core biopsies of soft tissue ranging from 0.9 x 0.1 cm to 1.5 x 0.1 cm. Submitted in toto in D1. Patient Age/Sex Location Account Attending Physician PONCHO KEYES 54/M LABSPEC [id number] Dr. Lalo Álvarez MD E. Received in formalin in a container labeled with the patient's name, date of , and LM is a 0.9 x 0.1 cm white and wispy core biopsy of soft tissue. Submitted in toto in E1. F. Received in formalin in a container labeled with the patient's name, date of , and LB is a 1.3 x 0.1 cm white and wispy core biopsy of soft tissue. Submitted in toto in F1. [facility] 10-13-2024 CPT:51931v4 Patient Age/Sex Location Account Attending Physician PONCHO KEYES 54/M LABSPEC [id number] Dr. Lalo Álvarez MD Signed (signature on file) Dr. Teresita Lemus DO 10/14/24 1031 Normal [facility] Comment on above: Performed By: #### P PROSB #### [facility] [address]. [place], [place], [id number] Magnetic resonance imaging r eportOrdered By: Tez Tran on 09-22-2024 Study report [facility] Services [address] [place], [place] [id number] Pelvis W/WO Contrast MR#: [id number] Acct: [id number] Name: PONCHO KEYES Rep #: [id number] : 1970 M 54 From: Lindsey Tran MD PCP: Dr. Alba Fitch DO Status: REG CLI Study:Pelvis W/WO Contrast Date of Exam: 09/21/24 Exam# [id number] Ordering Dr: Jose Álvarez MD PROCEDURE: PELVIS W/WO CONTRAST, 09/21/2024 REASON FOR EXAM: ELEVATED PSA TECHNIQUE: Multisequence multiplanar MRI pelvis was performed with and without IV contrast. CONTRAST: 20 mL Clariscan COMPARISON: None FINDINGS: Variable overall mild motion limitation, mild/moderately degrading the axial andsagittal small muqrp-sz-tbyf T2 sequences which are notably gonzalez sequences. Sagittal postcontrast sequences also mild/moderatelymotion degraded. Dynamic postcontrast imaging limited by suboptimal signal to noise ratio. Prostate size: 5.4 x 4.1 x 4.9 cm, estimated volume 56 mL. Transition zone: PI-RADS 2 findings. Additional lesions as below: *Lesion 1: Junction of the LEFT anterior peripheral zone and the underlying LEFTanterior transition zone at the level of the midgland to apex, 1.3 cm (series 13, image 22). *T2 score: 3. *DWI score: 4. *DCE: N/A. *Overall PI-RADS: PI-RADS 3 utilizing transition zone criteria. *Extracapsular extension:No definite extracapsular extension allowing for limitations, however, there is capsular abutment greater than 1 cm which increases the risk of occult early/microscopic extracapsular extension. Peripheral Zone: Background changes of likely prostatitis (PI-RADS 2). Additional lesions as below: *Lesion 2: Bilateral posteromedial peripheral zones at the midgland to apex, 3.2cm (series 13, image 23). *T2 score: 3. *DWI score: 3. *DCE: N/A. *Overall PI-RADS: Negative although limited due to suboptimal signal to noise ratio as above. *Extracapsular extension:No definite extracapsular extension allowing for limitations, however, there is capsular abutment greater than 1 cm which increases the risk of occult early/microscopic extracapsular extension. Note that this includes the region of the bilateral neurovascular bundles and anterior rectum, without grossinvolvement. Neurovascular bundles: Unremarkable. Seminal vesicles: Unremarkable. Bladder: Unremarkable. Lymph nodes: Unremarkable. Bones: No destructive or frankly suspicious bony lesions identified. Other: Partially imaged at least small LEFT and trace RIGHT hydroceles. Suspectvasectomy. MRI/Pelvis W/WO Contrast IMPRESSION: 1. Slightly motion limited exam as above. 2. 1.3 cm PI-RADS 3 lesion at the junction of the LEFT anterior peripheral and underlying transition zones at the level of the midgland to apex, applying transition zone criteria (lesion 1). 3. 3.2 cm PI-RADS 3 lesion in the bilateral posteromedial peripheral zones at the midgland to apex (lesion 2). 4. No definite extracapsular extension allowing for limitations, however, there is capsular abutment greater than 1 cm by both lesions which increases the risk of occult early/microscopic extracapsular extension. Note that this includes the region of the bilateral neurovascular bundles and anterior rectum, without gross involvement. 5. No overt pelvic lymphadenopathy. 6. Additional description as above. Reading Location: [id number] CC: Dr. Lalo Álvarez MD; Dr. Alba Fitch DO ~ Director Of Email Marketing: Signed [facility] Pelvis W/WO Contraston 09-21 Pelvis W/WO Contrast [facility] Services [address] [place] [address] Pelvis W/WO Contrast MR#: [id number] Acct: [id number] Name: PONCHO KEYES Rep #: [id number] : 1970 M 54 From: Tez Tran MD PCP: Dr. Alba Fitch DO Status: REG CLI Study: Pelvis W/WO Contrast Date of Exam: 09/21/24 Exam# [id number] Ordering Dr: Lalo Álvarez MD PROCEDURE: PELVIS W/WO CONTRAST, 09/21/2024 REASON FOR EXAM: ELEVATED PSA TECHNIQUE: Multisequence multiplanar MRI pelvis was performed with and without IV contrast. CONTRAST: 20 mL Clariscan COMPARISON: None FINDINGS: Variable overall mild motion limitation, mild/moderately degrading the axial and sagittal small juomh-bo-flog T2 sequences which are notably gonzalez sequences. Sagittal postcontrast sequences also mild/moderately motion degraded. Dynamic postcontrast imaging limited by suboptimal signal to noise ratio. Prostate size: 5.4 x 4.1 x 4.9 cm, estimated volume 56 mL. Transition zone: PI-RADS 2 findings. Additional lesions as below: *Lesion 1: Junction of the LEFT anterior peripheral zone and the underlying LEFT anterior transition zone at the level of the midgland to apex, 1.3 cm (series 13, image 22). *T2 score: 3. *DWI score: 4. *DCE: N/A. *Overall PI-RADS: PI-RADS 3 utilizing transition zone criteria. *Extracapsular extension:No definite extracapsular extension allowing for limitations, however, there is capsular abutment greater than 1 cm which increases the risk of occult early/microscopic extracapsular extension. Peripheral Zone: Background changes of likely prostatitis (PI-RADS 2). Additional lesions as below: *Lesion 2: Bilateral posteromedial peripheral zones at the midgland to apex, 3.2 cm (series 13, image 23). *T2 score: 3. *DWI score: 3. *DCE: N/A. *Overall PI-RADS: Negative although limited due to suboptimal signal to noise ratio as above. *Extracapsular extension:No definite extracapsular extension allowing for limitations, however, there is capsular abutment greater than 1 cm which increases the risk of occult early/microscopic extracapsular extension. Note that this includes the region of the bilateral neurovascular bundles and anterior rectum, without gross involvement. Neurovascular bundles: Unremarkable. Seminal vesicles: Unremarkable. Bladder: Unremarkable. Lymph nodes: Unremarkable. Bones: No destructive or frankly suspicious bony lesions identified. Other: Partially imaged at least small LEFT and trace RIGHT hydroceles. Suspect vasectomy. MRI/Pelvis W/WO Contrast IMPRESSION: 1. Slightly motion limited exam as above. 2. 1.3 cm PI-RADS 3 lesion at the junction of the LEFT anterior peripheral and underlying transition zones at the level of the midgland to apex, applying transition zone criteria (lesion 1). 3. 3.2 cm PI-RADS 3 lesion in the bilateral posteromedial peripheral zones at the midgland to apex (lesion 2). 4. No definite extracapsular extension allowing for limitations, however, there is capsular abutment greater than 1 cm by both lesions which increases the risk of occult early/microscopic extracapsular extension. Note that this includes the region of the bilateral neurovascular bundles and anterior rectum, without gross involvement. 5. No overt pelvic lymphadenopathy. 6. Additional description as above. Reading Location: [id number] CC: Dr. Lalo Álvarez MD; Dr. Alba Fitch DO Director Of Email Marketing: Signed Normal [facility] PSA Total+%Freeon 09-01-2024 PSA, FREE 0.51 ng/mL Normal N/A [facility] Comment on above: Result Comment: Riccardo CEE methodology. Performed By: #### L [id number] #### [facility] [address] [place], [place], [address] PSA, FREE % 12.0 Normal . [facility] Comment on above: Result Comment: The table below lists the probability of prostate cancer for men with non-suspicious NABIL results and total PSA between 4 and 10 ng/mL, by patient age (Catalona et al, CATERINA 1998, 279:1542). % Free PSA 50-64 yr 65-75 yr 0.00-10.00% 56% 55% 10.01-15.00% 24% 35% 15.01-20.00% 17% 23% 20.01-25.00% 10% 20% >25.00% 5% 9% Please note: Hai et al did not make specific recommendations regarding the use of percent free PSA for any other population of men. Performed at: [facility] [id number] House Painting Instructor: Luigi Sanchez PhD, Phone: [phone] Performed By: #### L 3110.0500 #### [facility] [address] [place], [address] PSA, TOTAL ULTR 4.240 ng/mL Abnormal 0.000-4.000 [facility] Comment on above: Result Comment: Riccardo CEE methodology. According to the [employer], Serum PSA should decrease and remain at undetectable levels after radical prostatectomy. The AUA defines biochemical recurrence as an initial PSA value 0.200 ng/mL or greater followed by a subsequent confirmatory PSA value 0.200 ng/mL or greater. Values obtained with different assay methods or kits cannot be used interchangeably. Results cannot be interpreted as absolute evidence of the presence or absence of malignant disease. Performed By: #### L 3110.0500 #### [facility] [address] [place], [address] Free PSA/Total PSA [Mass fra ction]Ordered By: Lalo Álvarez on 08-31-2024 % Free Prostate Specific Ag Calc 12.0 % . [facility] Comment on above: The table below list s the probability of prostate cancer formen with non-suspicious NABIL results and total PSA between4 and 10 ng/mL, by patient age (Catalona et al, CATERINA 1998,279:1542). % Free PSA 50-64 yr 65-75 yr 0.00-10.00% 56% 55% 10.01-15.00% 24% 35% 15.01-20.00% 17% 23% 20.01-25.00% 10% 20% >25.00% 5% 9%Please note: Hai et al did not make specific recommendations regarding the use of percent free PSA for any other population of men.Performed at: [facility] [id number] Director: Luigi Sanchez PhD, Phone: [phone] Free prostate specific antig en (PSA) measurementOrdered By: Lalo Álvarez on 08-31-2024 Free Prostate Specific Antigen 0.51 ng/mL N/A [facility] Comment on above: [employer] ECLIA methodol ogy. PSA, totalOrdered By: Lalo sanford on 08-31-2024 Prostate Specific Ag, Ultra-Sensitv 4.240 ng/mL High 0.000-4.000 [facility] Comment on above: Marilu ECLIA methodol ogy.According to the [place], Serum PSAshould decrease and remain at undetectable levels afterradical prostatectomy. The AUA defines biochemicalrecurrence as an initial PSA value 0.200 ng/mL or greaterfollowed by a subsequent confirmatory PSA value 0.200 ng/mLor greater. Values obtained with different assay methods orkits cannot be used interchangeably. Results cannot beinterpreted as absolute evidence of the presence or absenceof malignant disease. Serum or plasma free prostat e specific antigen (PSA)/total PSA mass ratioOrdered By: Lalo Álvarez on 08-31-2024 Free PSA/Total PSA [Mass fraction] 12.0 % . [facility] Comment on above: The table below list s the probability of prostate cancer formen with non-suspicious NABIL results and total PSA between4 and 10 ng/mL, by patient age (Hai et al, CATERINA 1998,279:1542). % Free PSA 50-64 yr 65-75 yr 0.00-10.00% 56% 55% 10.01-15.00% 24% 35% 15.01-20.00% 17% 23% 20.01-25.00% 10% 20% >25.00% 5% 9%Please note: Hai et al did not make specific recommendations regarding the use of percent free PSA for any other population of men.Performed at: [facility] [address] [id number] Director: Luigi Sanchez PhD, Phone: [phone] LABORATORYOrdered By: Renny Garcia on 04-22-2024 Cholesterol [Mass/Vol] 184 mg/dL Normal 0 - 200 mg/dL AO ADM SS Comment on above: Interpretive Data: C holesterol Reference Interval: Less than 200 Desirable 200-239 Borderline high risk 240 and above High risk Cholesterol in HDL [Mass/Vol] 80 mg/dL High 40 - 60 mg/dL AO ADM SS Cholesterol in LDL [Mass/Vol] 86 mg/dL Normal 0 - 130 mg/dL AO ADM SS Triglyceride [Mass/Vol] 88 mg/dL Normal 0 - 150 mg/dL AO ADM SS Comment on above: Interpretive Data: T riglyceride Reference Interval: Less than 150 Normal 150-199 Borderline high risk 200-499 High risk 500 or higher Very high risk LABORATORYOrdered By: SYSTEM SYSTEM on 04-22-2024 Prostate specific Ag [Mass/Vol] 4.04 ng/mL High 0.00 - 4.00 ng/mL AO ADM SS LIPIDon 04-22-2024 Cholesterol [Mass/Vol] 184 mg/dL Normal 0-200 [facility] Comment on above: Result Comment: Chol esterol Reference Interval: Less than 200 Desirable 200-239 Borderline high risk 240 and above High risk Performed By: #### P SA, LIPID #### [address] [address] Cholesterol in HDL [Mass/Vol] 80 mg/dL High 40-60 [facility] Comment on above: Performed By: #### P SA, LIPID #### [address] [address] Cholesterol in LDL [Mass/Vol] 86 mg/dL Normal 0-130 [facility] Comment on above: Performed By: #### P SA, LIPID #### [address] [address] Triglyceride [Mass/Vol] 88 mg/dL Normal 0-150 [facility] Comment on above: Result Comment: Trig lyceride Reference Interval: Less than 150 Normal 150-199 Borderline high risk 200-499 High risk 500 or higher Very high risk Performed By: #### P SA, LIPID #### [facility] [address] [place], [place] [address] PSAon 04-22-2024 Prostate Specific Antigen 4.04 ng/mL High 0.00-4.00 [facility] Comment on above: Performed By: #### P SA, LIPID #### [facility] [address] [place], [place] [address] MALBRon 06-20-2023 U Creatinine 52.8 mg/dL Normal 39.0-259.0 [facility] ([place]) Comment on above: Performed By: #### M ALBR #### [address] [place], [place] [address] U Microalb 791 mcg/dL Normal [facility] ([place]) Comment on above: Performed By: #### M ALBR #### [address] [place], [place] [address] U Ratio Alb/Cre 15 mcg/mg Normal 0-30 [facility] ([place]) Comment on above: Performed By: #### M ALBR #### [address] [address] Basophil percentageOrdered B y: Yaima Tobar on 06-19-2023 Cholesterol [Mass/Vol] 179 mg/dL <200 [facility] Comment on above: <200 mg/dL Desirable 200-240 mg/dL Borderline >240 mg/dL High Risk Triglyceride [Mass/Vol] 213 mg/dL <199 [facility] Comment on above: The drugs N-Acetylcy steine and Metamizole may falsely depress this assay.Serum Triglycerides Reference Interval Normal <150 mg/dL Borderline high 150 - 199 mg/dL High 200 - 499 mg/dL Very High > or = 500 mg/dL LABORATORYOrdered By: Nubia Wolf on 06-19-2023 Albumin DL <= 20 mg/L (U) [Mass/Vol] 791 mcg/dL Invalid Interpretation Code AO ADM SS Albumin/Creatinine DL <= 20 mg/L (U) [Mass ratio] 15 mcg/mg Normal 0 - 30 mcg/mg AO ADM SS Creatinine (U) [Mass/Vol] 52.8 mg/dL Normal 39.0 - 259.0 mg/dL AO ADM SS No Panel InformationOrdered By: Yaima Tobra on 06-19-2023 Prostate Specific Antigen Screen 4.53 ng/mL 0.00-4.00 [facility] Comment on above: This test was perfor med using the TPSA assay method for thePlayspace chemistry system. Values obtained with differentassay methods cannot be used interchangably.When changing PSA assays in the course of monitoring apatient, additional sequential testing should be carriedout to confirm baseline values. Serum or plasma cholesterol in HDL measurement (mass/volume)Ordered By: Yaima Tobar on 06-19-2023 Cholesterol in HDL [Mass/Vol] 70 mg/dL >40 [facility] Comment on above: The drugs N-Acetylcy steine and Metamizole may falsely depress this assay. Reference Range HDL <40 mg/dL Low HDL Cholesterol HDL >or= 60 mg/dL High HDL Cholesterol Serum or plasma cholesterol in VLDL measurement (mass/volume)Ordered By: Yaima Tobar on 06-19-2023 Cholesterol in VLDL [Mass/Vol] 43 mg/dL 5-40 [facility] Serum or plasma low density lipoprotein (LDL) cholesterol measurement (mass/volume)Ordered By: Yaima Tobar on 06-19-2023 Cholesterol in LDL [Mass/Vol] 66 mg/dL 0-130 [facility] Basophil percentageOrdered B y: Yaima Tobar on 06-18-2023 Chloride [Moles/Vol] 102 mmol/L 98-107 [facility] Glucose [Mass/Vol] 96 mg/dL 74-[address] [facility] Potassium [Moles/Vol] 3.2 mmol/L 3.5-5.1 [facility] Sodium [Moles/Vol] 139 mmol/L 136-[address] [facility] WBC (Bld) [#/Vol] 10.8 10*3/uL 4.4-11.0 [facility] Blood erythrocytes count (nu mber/volume)Ordered By: Yaima Tobar on 06-18-2023 RBC (Bld) [#/Vol] 4.84 10*6/uL 4.6-6.2 [facility] Blood hemoglobin measurement (mass/volume)Ordered By: Yaima Tobar on 06-18-2023 Hemoglobin (Bld) [Mass/Vol] 15.4 g/dL 13.0-16.5 [facility] Blood platelet mean volumeOr dered By: Yaima Tobar on 06-18-2023 Platelet mean volume (Bld) [Entitic vol] 11.0 fL 6.2-12.0 [facility] Determination of erythrocyte mean corpuscular volume (MCV)Ordered By: Yaima Tobar on 06-18-2023 MCV (RBC) [Entitic vol] 88.2 fL 80-94 [facility] Hematocrit Auto (Bld) [Volum e fraction]Ordered By: Yaima Tobar on 06-18-2023 Hematocrit (Bld) [Volume fraction] 42.7 % 40-54 [facility] - Chemistry and C hemistry - challengeOrdered By: Yaima Tobar on 06-18-2023 CO2 [Moles/Vol] 30.0 mmol/L 21.0-32.0 [facility] Urea nitrogen/Creatinine [Mass ratio] 19.8 mg/mg 10-20 [facility] - Hematology and Cell countsOrdered By: Yaima Tobar on 06-18-2023 Erythrocyte distribution width (RBC) [Entitic vol] 43.1 fL 35.1-43.9 [facility] Erythrocyte distribution width (RBC) [Ratio] 13.4 % 11.6-14.6 [facility] MCH (RBC) [Entitic mass] 31.8 pg 27.0-32.0 [facility] MCHC Auto (RBC) [Mass/Vol]Or dered By: Yaima Tobar on 06-18-2023 MCHC (RBC) [Mass/Vol] 36.1 g/dL 32-36 [facility] No Panel InformationOrdered By: Yaima Tobar on 06-18-2023 Estimated GFR (MDRD) Amer 112 mL/min >60 [facility] Comment on above: GFR Calc Estimated GFR (MDRD) Non-Af Amer 92 mL/min >60 [facility] Comment on above: Non- GFR Calc Platelets bldOrdered By: Chr istop Marva on 06-18-2023 Platelets (Bld) [#/Vol] 287 10*3/uL 150-450 [facility] Serum or plasma calcium jason urement (mass/volume)Ordered By: Yaima Tobar on 06-18-2023 Calcium [Mass/Vol] 9.0 mg/dL 8.5-10.[address] [facility] Serum or plasma creatinine m easurement (mass/volume)Ordered By: Yaima Tobar on 06-18-2023 Creatinine [Mass/Vol] 0.91 mg/dL 0.70-1.30 [facility] Comment on above: The validity of the calculated GFR & GFRAA in patients over 70 years has not been determined. Clinical correlation is essential. Serum or plasma urea nitroge n measurement (mass/volume)Ordered By: Yaima Tobar on 06-18-2023 Urea nitrogen [Mass/Vol] 18 mg/dL 7-18 [facility] Thin prep Papanicolaou smear with manual screeningOrdered By: Yaima Tobar on 06-18-2023 Thin prep Papanicolaou smear with manual screening 7 5-15 [facility] Gram stain for investigation of transfusion reactionOrdered By: Yaima Tobar on 05-15-2023 Microscopic observation Gram stain Nom (Unsp spec) [facility] No Panel InformationOrdered By: Yaima Tobar on 05-15-2023 Nasopharyngeal Culture Streptococcus constellatus con [facility] Nasopharyngeal Culture Erysipelothrix rhusiopathiae [facility] No Panel Informationon 05-09 Thyroid Stimulating Hormone (TSH) 1.13 uIU/mL 0.358-3.74 [facility] Work Phone: LABORATORYOrdered By: Kathleen Bennett on 09-12-2021 Albumin BCP dye [Mass/Vol] 3.9 G/dL Invalid Interpretation Code 3.5 - 5.0 G/dL AO ADM SS Albumin/Globulin [Mass ratio] 1.1 {ratio} Invalid Interpretation Code 1.1 - 2.5 ratio AO ADM SS ALP [Catalytic activity/Vol] 80 U/L Invalid Interpretation Code 40 - 135 U/L AO ADM SS ALT With P-5'-P [Catalytic activity/Vol] 42 U/L Invalid Interpretation Code 16 - 63 U/L AO ADM SS AST With P-5'-P [Catalytic activity/Vol] 19 U/L Invalid Interpretation Code 10 - 40 U/L AO ADM SS Basophil, Absolute 0.10 103/mcL Invalid Interpretation Code 0.00 - 0.19 10^3/mcL AO Auto Heme SS Basophils/100 WBC (Bld) 1.1 % Invalid Interpretation Code 0.0 - 2.5 % AO Auto Heme SS Bilirubin [Mass/Vol] 0.5 mg/dL Invalid Interpretation Code 0.2 - 1.0 mg/dL AO ADM SS Calcium [Mass/Vol] 9.3 mg/dL Invalid Interpretation Code 8.4 - 10.2 mg/dL AO ADM SS Chloride [Moles/Vol] 101 mmol/L Invalid Interpretation Code 98 - 107 mmol/L AO ADM SS Cholesterol [Mass/Vol] 169 mg/dL Invalid Interpretation Code 0 - 200 mg/dL AO ADM SS Cholesterol in HDL [Mass/Vol] 58 mg/dL Invalid Interpretation Code 40 - 60 mg/dL AO ADM SS Cholesterol in LDL [Mass/Vol] 73 mg/dL Invalid Interpretation Code 0 - 130 mg/dL AO ADM SS CO2 [Moles/Vol] 33 mmol/L Invalid Interpretation Code 22 - 29 mmol/L AO ADM SS Creatinine [Mass/Vol] 0.95 mg/dL Invalid Interpretation Code 0.70 - 1.30 mg/dL AO ADM SS Electrolyte Balance 7.0 mEq/L Invalid Interpretation Code 4.0 - 15.0 mEq/L AO ADM SS Eosinophil, Absolute 0.30 103/mcL Invalid Interpretation Code 0.00 - 0.40 10^3/mcL AO Auto Heme SS Eosinophils/100 WBC (Bld) 3.2 % Invalid Interpretation Code 0.0 - 7.0 % AO Auto Heme SS Erythrocyte distribution width (RBC) [Ratio] 13.7 % Invalid Interpretation Code 11.5 - 14.5 % AO Auto Heme SS Globulin 3.7 G/dL Invalid Interpretation Code AO ADM SS Glucose [Mass/Vol] 103 mg/dL Invalid Interpretation Code 70 - 105 mg/dL AO ADM SS Hematocrit (Bld) [Volume fraction] 44.0 % Invalid Interpretation Code 42.0 - 52.0 % AO Auto Heme SS Hemoglobin (Bld) [Mass/Vol] 15.5 G/dL Invalid Interpretation Code 14.0 - 18.0 G/dL AO Auto Heme SS Lymphocyte, Absolute 2.10 103/mcL Invalid Interpretation Code 0.77 - 3.85 10^3/mcL AO Auto Heme SS Lymphocytes/100 WBC (Bld) 25.7 % Invalid Interpretation Code 10.0 - 50.0 % AO Auto Heme SS MCH (RBC) [Entitic mass] 31.7 pg Invalid Interpretation Code 27.0 - 31.2 pg AO Auto Heme SS MCHC (RBC) [Mass/Vol] 35.3 G/dL Invalid Interpretation Code 31.8 - 35.4 G/dL AO Auto Heme SS MCV (RBC) [Entitic vol] 89.9 fL Invalid Interpretation Code 80.0 - 94.0 fL AO Auto Heme SS Monocyte, Absolute 0.60 103/mcL Invalid Interpretation Code 0.15 - 1.00 10^3/mcL AO Auto Heme SS Monocytes/100 WBC (Bld) 7.9 % Invalid Interpretation Code 1.7 - 13.0 % AO Auto Heme SS Neutrophil, Absolute 5.00 103/mcL Invalid Interpretation Code 2.85 - 6.16 10^3/mcL AO Auto Heme SS Neutrophils/100 WBC (Bld) 62.1 % Invalid Interpretation Code 37.0 - 80.0 % AO Auto Heme SS Platelet mean volume (Bld) [Entitic vol] 9.9 fL Invalid Interpretation Code 7.4 - 10.4 fL AO Auto Heme SS Platelets (Bld) [#/Vol] 210 103/mcL Invalid Interpretation Code 130 - 400 10^3/mcL AO Auto Heme SS Potassium [Moles/Vol] 4.2 mmol/L Invalid Interpretation Code 3.5 - 5.1 mmol/L AO ADM SS Protein [Mass/Vol] 7.6 G/dL Invalid Interpretation Code 6.4 - 8.2 G/dL AO ADM SS RBC (Bld) [#/Vol] 4.89 106/mcL Invalid Interpretation Code 4.04 - 6.13 10^6/mcL AO Auto Heme SS Sodium [Moles/Vol] 141 mmol/L Invalid Interpretation Code 136 - 145 mmol/L AO ADM SS Triglyceride [Mass/Vol] 192 mg/dL Invalid Interpretation Code 0 - 150 mg/dL AO ADM SS Urea nitrogen [Mass/Vol] 16 mg/dL Invalid Interpretation Code 7 - 18 mg/dL AO ADM SS Urea nitrogen/Creatinine [Mass ratio] 17 ratio Invalid Interpretation Code 7 - 27 ratio AO ADM SS Uric Acid Lvl 5.8 mg/dL Invalid Interpretation Code 3.5 - 7.2 mg/dL AO ADM SS WBC (Bld) [#/Vol] 8.00 103/mcL Invalid Interpretation Code 4.60 - 10.80 10^3/mcL AO Auto Heme SS LABORATORYOrdered By: SYSTEM SYSTEM on 09-12-2021 GFR 101 ml/min/1.73sqm Invalid Interpretation Code AO Chemistry S GFR Non- 83 ml/min/1.73sqm Invalid Interpretation Code AO Chemistry S Vital Signs Date Time Vital Sign Value Performing Clinician Facility 03-15-2025 15:04-0400 Body height 168 cm Ayo Whaley MD Work Phone: [facility] 03-15-2025 15:04-0400 Body height 167.64 cm Ayo Whaley MD Work Phone: [facility] 03-15-2025 15:04-0400 Body mass index (BMI) [Ratio] 34.83 kg/m2 Ayo Whaley MD Work Phone: [facility] 03-15-2025 15:04-0400 Body weight 98 kg Ayo Whaley MD Work Phone: [facility] 03-15-2025 15:04-0400 Body weight 97.52 kg Ayo Whaley MD Work Phone: [facility] 03-15-2025 15:04-0400 BP SITE #1 Ayo Whaley MD Work Phone: [facility] 03-15-2025 15:04-0400 Diastolic blood pressure 89 mm[Hg] Ayo Whaley MD Work Phone: [facility] 03-15-2025 15:04-0400 Heart rate 68 /min Ayo Whaley MD Work Phone: [facility] 03-15-2025 15:04-0400 HGHTCHNVIS Ayo Whaley MD Work Phone: [facility] 03-15-2025 15:04-0400 Systolic blood pressure 138 mm[Hg] Ayo Whaley MD Work Phone: [facility] 03-15-2025 15:04-0400 VITALSDONE Ayo Whaley MD Work Phone: [facility] 05-20-2022 10:09-0500 Body height 167.[address] Alba Fitch Work Phone: [facility] Work Phone: 05-20-2022 10:09-0500 Body mass index (BMI) [Ratio] 37.1 kg/m2 Dr. Alba Fitch Work Phone: [facility] Work Phone: 05-20-2022 10:09-0500 Body temperature 98.4 [degF] Dr. Alba Ficth Work Phone: [facility] Work Phone: 05-20-2022 10:09-0500 Body weight 104.[address] Alba Fitch Work Phone: [facility] Work Phone: 05-20-2022 10:09-0500 Diastolic blood pressure 85 mm[Hg] Dr. Alba Fitch Work Phone: [facility] Work Phone: 05-20-2022 10:09-0500 Heart rate 59 /min Dr. Alba Fitch Work Phone: [facility] Work Phone: 05-20-2022 10:09-0500 Respiratory rate 18 /min Dr. Alba Fitch Work Phone: [facility] Work Phone: 05-20-2022 10:09-0500 SaO2% (BldA) [Mass fraction] 95 % Dr. Alba Fitch Work Phone: [facility] Work Phone: 05-20-2022 10:09-0500 Systolic blood pressure 129 mm[Hg] Dr. Alba Fitch Work Phone: [facility] Work Phone: 05-09-2022 13:48-0500 Body height 167.[address] Alba Fitch Work Phone: [facility] Work Phone: 05-09-2022 13:48-0500 Body mass index (BMI) [Ratio] 37.2 kg/m2 Dr. Alba Fitch Work Phone: [facility] Work Phone: 05-09-2022 13:48-0500 Body weight 104.[address] Alba Fitch Work Phone: [facility] Work Phone: 05-09-2022 13:48-0500 Diastolic blood pressure 86 mm[Hg] Dr. Alba Fitch Work Phone: [facility] Work Phone: 05-09-2022 13:48-0500 Heart rate 56 /min Dr. Alba Fitch Work Phone: [facility] Work Phone: 05-09-2022 13:48-0500 Respiratory rate 16 /min Dr. Alba Fitch Work Phone: [facility] Work Phone: 05-09-2022 13:48-0500 Systolic blood pressure 146 mm[Hg] Dr. Alba Fitch Work Phone: [facility] Work Phone: Encounters Encounter Date Encounter Type Care Provider Facility Start: 04-01-2025 End: 04-01-[address] [facility] Start: 03-15-2025 Visit out of hours Ayo lawrence MD Work Phone: [facility] Work Phone: Start: 03-15-2025 In-person encounter Ayo fowler MD Work Phone: [facility] Work Phone: Start: 10-12-2024 End: 10-12-[address] Alba Fitch DO Work Phone: [facility] Work Phone: Start: 10-12-2024 End: 10-12-[address] Lalo Álvarez MD -Laboratory, Specimen Work Phone: Start: 10-12-2024 End: 10-12-2024 ambulatory Lalo Álvarez Facility:[facility] Start: 09-21-2024 End: 09-21-[address] Alba Fitch DO Work Phone: [facility] Work Phone: Start: 09-21-2024 End: 09-21-[address] Lalo Álvarez MD -[facility] Work Phone: Start: 09-21-2024 End: 09-21-2024 ambulatory Lalo Álvarez Facility:[facility] Start: 08-31-2024 End: 08-31-[address] Alba Fitch DO Work Phone: [facility] Work Phone: Start: 08-31-2024 End: 08-31-[address] 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 Alba Fitch Work Phone: [facility] Work Phone: Start: 06-18-2023 End: 06-18-[address] Alba Fitch Work Phone: [facility] Work Phone: Start: 06-18-2023 End: 06-18-[address] Alba Fitch Work Phone: [facility]-Pulmonary Services/Neurology Work Phone: Start: 05-26-2023 End: 05-26-2023 ambulatory [facility] Work Phone: Start: 05-26-2023 End: 05-26-2023 Patient encounter procedure [facility]-Cat Scan, [facility] Work Phone: Start: 05-15-2023 End: 05-15-2023 ambulatory [facility] Work Phone: Start: 05-15-2023 End: 05-15-2023 Patient encounter procedure [facility]-Laboratory, Specimen Work Phone: Start: 05-29-2022 End: 05-29-[address] Alba Fitch Work Phone: [facility] Work Phone: Start: 05-29-2022 End: 05-29-[address] Alba Fitch Work Phone: [facility]-Sleep Lab Start: 05-27-2022 Non-patient / Non-visit Dr. Alba Fitch Work Phone: [facility] Start: 05-27-2022 End: 05-27-[address] Alba Fitch Work Phone: [facility] Work Phone: Start: 05-27-2022 End: 05-27-[address] Alba Fitch Work Phone: [facility]-Cardiovascula r Services Start: 05-20-2022 End: 05-20-[address] Alba Fitch Work Phone: [facility]-Pulmonary Medicine [facility] Start: 05-09-2022 End: 05-09-[address] Alba Fitch Work Phone: [facility] Work Phone: Start: 05-09-2022 End: 05-09-[address] Alba Fitch Work Phone: [facility]-Laboratory Start: 05-09-2022 End: 05-09-[address] Alba Fitch Work Phone: [facility] Start: 04-29-2022 Non-patient / Non-visit Dr. Alba Fitch Work Phone: [facility] Start: 09-12-2021 End: 09-12-2021 Patient encounter procedure JUAN A JONES APRN-SUPERVISOR BONDING [facility] Procedures Date Procedure Procedure Detail Performing Clinician Start: 03-15-2025 Blood pressure withi n normal parameters - no follow-up required Ayo Whaley MD Work Phone: Start: 03-15-2025 BMI outside of spencer l parameters - no follow-up plan/reason not given Ayo Whaley MD Work Phone: Start: 03-15-2025 Current tobacco non- user cad cap copd pv dm Ayo Whaley MD Work Phone: Start: 03-15-2025 Osteoarthritis sympt oms&funcjal status asses Ayo Whaley MD Work Phone: Start: 03-15-2025 Documentation of cur rent medications Ayo Whaley MD Work Phone: Start: 03-15-2025 Pain assessment docu mented as positive - no follow-up/reason not given Ayo Whaley MD Work Phone: Start: 03-15-2025 Arthrocentesis aspir &/inj major jt/bursa w/o us Ayo Whaley MD Work Phone: Start: 03-15-2025 Injection - triamcin olone acetonide 10 mg Ayo Whaley MD Work Phone: Start: 09-21-2024 MRI of pelvis with contrast Dr. Alba Fitch DO Work Phone: Start: 08-31-2024 Free prostate specif ic antigen level Dr. Alba Fitch DO Work Phone: Comment on above: [employer]. Start: 08-31-2024 Prostate specific an tigen measurement Dr. Alba Fitch DO Work Phone: Comment on above: [employer].According to the [place] [employer], Serum PSAshould decrease and remain at undetectable levels afterradical prostatectomy. The AUA defines biochemicalrecurrence as an initial PSA value 0.200 ng/mL or greaterfollowed by a subsequent confirmatory PSA value 0.200 ng/mLor greater. Values obtained with different assay methods orkits cannot be used interchangeably. Results cannot beinterpreted as absolute evidence of the presence or absenceof malignant disease. Start: 05-26-2023 CT of face Start: 05-15-2023 Investigation of tra nsfusion reaction Start: 05-15-[address] Alba Fitch Work Phone: Start: 02-23-2019 Electrocardiographic monitoring [employer] Comment on above: NSR Start: 12-06-2011 Cardiac catheterization JUAN A JONES [employer] Comment on above: No significant CAD, overal normal coronary arteries with normal LV funtion. Hand structure (body structure) [employer]ON[employer] Plan of Treatment Date Care Activity Detail Author Start: 03-15-2025 End: 03-15-2025 [employer] Work Phone: Start: 05-15-2023 Nasopharyngeal Culture Nasopharyngea l Culture [facility] Start: 05-15-2023 [facility] [place] Renal artery [facility] Work Phone: Immunizations Immunization Date Immunization Notes Care Provider Safia robles 06-29-2021 SARS-CoV-2 mRNA (tozinameran) vaccine MANUEL WENDY [employer] ([employer]) [facility] 06-06-2021 SARS-CoV-2 mRNA (tozinameran) vaccine MANUEL WENDY [employer] [facility] 02-01-2021 tetanus toxoid, reduced diphtheria toxoid, and acellular pertussis vaccine, adsorbed Lamoda [employer] [facility] 05-12-2019 influenza virus vaccine, unspecified formulation MANUEL WENDY [employer] [facility] 12-22-2018 tetanus toxoid, reduced diphtheria toxoid, and acellular pertussis vaccine, adsorbed JUAN A [employer] [facility] Payers Date Payer Category Payer Self-pay 2023 Unknown [id number] 1970 Unknown [id number] 1970 Unknown [id number] [id number] Unknown [facility] PACKAGE PLAN [id number] Unknown [facility] PACKAGE PLAN [id number] Unknown [id number] [id number] Unknown [id number] [id number] Unknown [id number] [id number] Unknown [id number] Social History Date Type Detail Facility Start: 12-22-2018 End: 12-26-2022 Tobacco smoking status Never smoked tobacco (finding) [facility] Sex Assigned At Sex [facility] Start: 05-09-2022 End: 12-26-2022 Tobacco smoking status NHIS Unknown if ever smoked [facility] Start: 1970 Sex Assigned At Male [facility] Tobacco Nicotine Use: Ch ew. Type: Oral (Snuff, Chew). [facility] Start: 09-06-2024 End: 09-23-2024 Sex Male (finding) [facility] Start: 03-15-2025 social history reviewed E&M Done [facility]. Work Phone: Clinical Notes 06-19-2023 to 07-17-2023 LaboratoryLaboratory Note Date & Type Note Facility 07-17-2023 Note If ancillary studies were utilized, the following Laboratory Developed Test (LDT) disclaimer will apply: Under CLIA requirements, [facility] is qualified to perform high complexity testing. For all ancillary stains, positive and negative controls stain appropriately. Performance characteristics of immunohistochemical and chromogenic in-situ hybridization tests have been determined by [facility]. These tests are used for clinical purposes, They should not be regarded as investigational or for research. [facility] 07-17-2023 Note If ancillary studies were utilized, the following Laboratory Developed Test (LDT) disclaimer will apply: Under CLIA requirements, [facility] is qualified to perform high complexity testing. For all ancillary stains, positive and negative controls stain appropriately. Performance characteristics of immunohistochemical and chromogenic in-situ hybridization tests have been determined by [facility]. These tests are used for clinical purposes, They should not be regarded as investigational or for research. [facility] 07-16-2023 Note If ancillary studies were utilized, the following Laboratory Developed Test (LDT) disclaimer will apply: Under CLIA requirements, [facility] is qualified to perform high complexity testing. For all ancillary stains, positive and negative controls stain appropriately. Performance characteristics of immunohistochemical and chromogenic in-situ hybridization tests have been determined by [facility]. These tests are used for clinical purposes, They should not be regarded as investigational or for research. [facility] 07-16-2023 Note If ancillary studies were utilized, the following Laboratory Developed Test (LDT) disclaimer will apply: Under CLIA requirements, [facility] is qualified to perform high complexity testing. For all ancillary stains, positive and negative controls stain appropriately. Performance characteristics of immunohistochemical and chromogenic in-situ hybridization tests have been determined by [facility]. These tests are used for clinical purposes, They should not be regarded as investigational or for research. [facility] 07-16-2023 Note If ancillary studies were utilized, the following Laboratory Developed Test (LDT) disclaimer will apply: Under CLIA requirements, [facility] is qualified to perform high complexity testing. For all ancillary stains, positive and negative controls stain appropriately. Performance characteristics of immunohistochemical and chromogenic in-situ hybridization tests have been determined by [facility]. These tests are used for clinical purposes, They should not be regarded as investigational or for research. [facility] 07-16-2023 Note If ancillary studies were utilized, the following Laboratory Developed Test (LDT) disclaimer will apply: Under CLIA requirements, [facility] is qualified to perform high complexity testing. For all ancillary stains, positive and negative controls stain appropriately. Performance characteristics of immunohistochemical and chromogenic in-situ hybridization tests have been determined by [facility]. These tests are used for clinical purposes, They should not be regarded as investigational or for research. [facility] 07-16-2023 Note If ancillary studies were utilized, the following Laboratory Developed Test (LDT) disclaimer will apply: Under CLIA requirements, [facility] is qualified to perform high complexity testing. For all ancillary stains, positive and negative controls stain appropriately. Performance characteristics of immunohistochemical and chromogenic in-situ hybridization tests have been determined by [facility]. These tests are used for clinical purposes, They should not be regarded as investigational or for research. [facility] 06-19-2023 Evaluation + Plan note Future Scheduled TestsProstate Specific Antigen 06/19/23Lipid Profile 06/19/23 [facility] 06-19-2023 Evaluation + Plan note Future Scheduled TestsProstate Specific Antigen 06/19/23 [facility] Evaluation + Plan note Future Appointments Appointment Date:09/25/2021 03:30:00 PM Scheduled Provider: Location:[facility] Appointment Type:CV Nurse BP Check [facility] Evaluation note Diagnosis Onset Date Essential hypertension acute Mixed hyperlipidemia acute ROSALES (obstructive sleep apnea) acute [facility] Work Phone: Evaluation note* Diagnosis Onset Date Resolution Status Essential hypertension acute Mixed hyperlipidemia acute ROSALES (obstructive sleep apnea) acute ROSALES (obstructive sleep apnea) acute [facility] Work Phone: Evaluation noteNo assessment information available [facility] Work Phone: Hospital course Narrative No data available for this section [facility] Hospital Discharge instructions No data available for this section [facility] Progress note No data available for this section [facility] Reason for referral (narrative)No reason for referral [facility] Work Phone: Chief Complaint and Reason for Visit Chief Complaint Amb Documentation High BP/ Self ref. E ORDER Reason for Visit Essential hypertensi on Mixed hyperlipidemia ROSALES (obstructive sleep apnea) Chief Complaint Amb Documentation High BP/ Self ref. E ORDER Sleep apnea HTN ROSALES Reason for Visit Essential hypertensi on Mixed hyperlipidemia ROSALES (obstructive sleep apnea) ROSALES (obstructive sleep apnea) Chief Complaint SINUSITIS Chief Complaint SINUSITIS PRE OP PRE OP Chief Complaint Admit Date Elevated prostate specific antigen September 21, 2024 12:25pm Family History No Family History Records Found Relationship Condition Age at Onset Recorded Date/T kirsten father Coronary artery disease Unknown Hypertension Unknown Presence of cardiac pacemaker Unknown mother Hypertension Unknown Relationship Condition Age at Onset Recorded Date/T kirsten father Coronary artery disease Unknown Hypertension Unknown Presence of cardiac pacemaker Unknown mother Hypertension Unknown sister Hypertension Unknown Family Member Condition Full Sister High blood pressure Father High blood pressure Father Heart disease Father Cancer Father Heart attack Father Mother High blood pressure Mother Arthritis Mother Alive Summary Purpose Advance Directives No Advanced Directives Records FoundNo Advanced Directives Records Found No Information Available No Advanced Directives Records Found Additional Source Comments Care Team (unrecognized sect ion and content) Team Status: Active Member Role Status Dates Dr. Alba Fitch DO Primary Care Provider Active Team Status: Inactive Member Role Status Dates Dr. Alba Fitch DO Primary Care Provider Active Start: August 31, 2024 End: August 31, 2024 Dr. Lalo Álvarez MD Attending Provider Active Start: August 31, 2024 End: August 31, 2024 Dr. Lalo Álvarez MD Referring Provider Active Start: August 31, 2024 End: August 31, 2024 Team Status: Active Member Role Status Dates Dr. Alba Fitch DO Primary Care Provider Active Dr. Joshua Bunch MD Attending Provider Active Dr. Yaima Tobar MD Referring Provider Activ e Team Status: Inactive Member Role Status Dates Dr. Alba Fitch DO Primary Care Provider Active Dr. Yaima Tobar MD Attending Provider, Refe rring Provider Active Team Status: Inactive Member Role Status Dates Dr. Alba Fitch DO Primary Care Provider Active Start: September 21, 2024 End: September 21, 2024 Dr. Lalo Álvarez MD Attending Provider Active Start: September 21, 2024 End: September 21, 2024 Dr. Lalo Álvarez MD Referring Provider Active Start: September 21, 2024 End: September 21, 2024 Team Status: Inactive Member Role Status Dates Dr. Alba Fitch DO Primary Care Provider Active Start: October 12, 2024 End: October 12, 2024 Dr. Lalo Álvarez MD Attending Provider Active Start: October 12, 2024 End: October 12, 2024 Dr. Lalo Álvarez MD Referring Provider Active Start: October 12, 2024 End: October 12, 2024 Goals (unrecognized section and content) Goals may be documented in a n alternate section (unrecognized sect ion and content) No Status Records FoundNo Status Records FoundNo Status Records Found INFORMATION SOURCE (unrecogn ized section and content) DATE CREATED AUTHOR 06/24/2023 [facility] ([place]) DATE CREATED AUTHOR AUTHOR'S ORGANIZ ATION 04/24/2024 [facility] DATE CREATED AUTHOR AUTHOR'S ORGANIZ ATION 04/03/2025 [facility] REASON FOR VISIT (unrecogniz ed section and content) left shoulder pain, Follow-u p by complaint FOR RECORDS PERTAINING TO PATIENTS WHO ARE [...] BE BASED ON THE PRIMARY CLINICAL RECORDS. [facility] [employer] [facility]. provides no warranty or guarantee of the accuracy or completeness of information in this document.
[2025-04-21 07:18] LABS: Hematocrit 43.5 % (40-54); Hemoglobin 15.4 g/dL (13.0-16.5); Immature Granulocytes Count 0.060 X10^3/uL (0.0-0.0); Mean Corp Hgb Conc 35.4 g/dL (32-36); Mean Corpuscular Volume 89.1 fL (80-94); Mean Platelet Vol. 11.3 fl (6.2-12.0); NRBC Flagged by Analyzer 0 % (0-5); Platelet Count 254 K/mm3 (150-450); RBC Distribution Width CV 12.8 % (11.6-14.6); RBC Distribution Width SD 41.8 fl (35.1-43.9); Red Blood Count 4.88 M/mm3 (4.6-6.2); White Blood Count 9.2 K/mm3 (4.4-11.0)
[2025-04-21 07:58] LABS: Cholesterol 169 mg/dL (<=200); Low Density Lipoprotein Calc. 87 mg/dL; Triglycerides 81 mg/dL; Very Low Density Lipoprotein 16 mg/dL (5-40); cholesterol:hdl ratio screen 2.51
[2025-04-21 08:00] LABS: AST(SGOT) 18 U/L (<=37); Alanine Aminotransfer ALT/SGPT 19 U/L (<=46); Albumin, Serum 4.3 g/dL (3.5-5.0); Alkaline Phosphatase 67 U/L (40-129); Anion Gap 11 (5-15); BUN 16 mg/dL (4-19); BUN/Creat Ratio 17.2 RATIO (10-20); Calcium,Total 9.4 mg/dL (7.6-11.0); Carbon Dioxide 29.5 mmol/L (21.0-32.0); Chloride 101 mmol/L (98-108); Globulin 3.1 g/dL (2.2-4.2); Glucose 146 mg/dL (70-99); Potassium 3.4 mmol/L (3.3-5.1)
[2025-04-21 08:32] LABS: PSA,Total- Diagnostic 4.23 ng/mL (0.00-4.00)
== END | disposition home or self-care (01) ==
LOC: LAB 06:15
PROVIDERS: Urology; PCP Preventive Medicine Occupational Medicine; Referring Provider Internal Medicine Cardiovascular Disease; Visit Provider Internal Medicine Cardiovascular Disease
DX: R97.20 Elevated prostate specific antigen [PSA] (principal); I10 Essential (primary) hypertension; E78.2 Mixed hyperlipidemia; R73.01 Impaired fasting glucose
CPT/HCPCS: 36415; 80053; 80061; 83036; 84153; 85025